=== PATIENT | male | born 1965 | race Caucasian/White ===

== ENCOUNTER 2017-07-18 07:30 | Inpatient (IN) | payer BC ==
[~2017-07-18 07:30] MED LIST: Gabapentin 300 MG Cap PO ONE; Lactated Ringers 1,000 ML IV SCH; Povidone-Iodine 10% Soln 118.25 ML Bottle ONE; Scopolamine 1.5 MG Transdermal Patch TOP SCH; Thrombin (Bovine) 5,000 Unit Kit ONE; ceFAZolin 2 GM in Sodium Chloride 0.9% 50 ML IV ONE
[2017-07-18] MEDS ORDERED: Ketamine 500 MG/5 ML MDV IV SCH (07:45)
[2017-07-18] MEDS ORDERED: Ropivacaine 49.25 ML, Ketorolac 30 MG, EPINEPHrine 0.5 MG, cloNIDine 80 MCG, Sodium Chl... INJECT ONE ×10 (07:45→11:00)
[2017-07-18] MEDS ORDERED: Tranexamic Acid 840 MG in Sodium Chloride 0.9% 50 ML IV SCH (07:45)
[2017-07-18] MEDS ORDERED: Glycopyrrolate 0.2 MG/ML 5 ML MDV ONE (09:30)
[2017-07-18] MEDS ORDERED: Succinylcholine 200 MG/10 ML MDV ONE (09:30)
[2017-07-18] MEDS ORDERED: Ondansetron 4 MG/2 ML SDV ONE (09:30)
[2017-07-18] MEDS ORDERED: Neostigmine Methylsulfate 1 MG/ML 5 ML Syringe ONE (09:30)
[2017-07-18] MEDS ORDERED: Propofol 200 MG/20 ML SDV ONE (09:30)
[2017-07-18] MEDS ORDERED: Gabapentin 300 MG Cap PO ONE (09:30)
[2017-07-18] MEDS ORDERED: Rocuronium 50 MG/5 ML Vial ONE (09:30)
[2017-07-18] MEDS ORDERED: Dexamethasone 4 MG/ML SDV ONE (09:30)
[2017-07-18] MEDS ORDERED: Scopolamine 1.5 MG Transdermal Patch TOP SCH (09:30)
[2017-07-18] MEDS ORDERED: ceFAZolin 2 GM in Sodium Chloride 0.9% 50 ML IV ONE (10:30)
[2017-07-18] MEDS ORDERED: Ketamine 500 MG/5 ML MDV IV ONE (11:00)
[2017-07-18] MEDS: Tranexamic Acid 840 MG in Sodium Chloride 0.9% 50 ML IV SCH ×2 (11:38→13:24)
[2017-07-18] MEDS ORDERED: Gelatin Sponge,Absorbable Pwd 1 GM Pkt ONE (12:30)
[2017-07-18] MEDS ORDERED: Lactated Ringers 1,000 ML ONE (12:52)
[2017-07-18] MEDS ORDERED: Naloxone 0.4 MG/ML SDV IVPUSH PRN (13:14)
[2017-07-18] MEDS ORDERED: Ondansetron 4 MG/2 ML SDV IVPUSH PRN (13:14)
[2017-07-18] MEDS ORDERED: Sodium Chloride 0.9% 10 ML Syringe FLUSH PRN (13:14)
[2017-07-18] MEDS ORDERED: Aluminum Hydroxide/Magnesium Hydroxide/Simethicone Susp 30 ML Cup PO PRN (13:14)
[2017-07-18] MEDS ORDERED: Sennosides 8.6 MG Tab PO PRN (13:14)
[2017-07-18] MEDS ORDERED: Magnesium Hydroxide 400 MG/5 ML Susp 30 ML Cup PO PRN (13:14)
[2017-07-18] MEDS ORDERED: Diazepam 5 MG Tab PO PRN (13:14)
[2017-07-18] MEDS ORDERED: HYDROmorphone 1 MG/ML Syringe IVPUSH PRN (13:14)
[2017-07-18] MEDS ORDERED: Zolpidem 5 MG Tab PO PRN (13:14)
[2017-07-18] MEDS ORDERED: ceFAZolin 2 GM in Sodium Chloride 0.9% 50 ML IV SCH (13:15)
[2017-07-18] MEDS ORDERED: Lactated Ringers 1,000 ML IV ONE (17:05)
[2017-07-18] MEDS: ceFAZolin 2 GM in Sodium Chloride 0.9% 50 ML IV SCH (17:16)
[2017-07-18] MEDS: VERIFY SCOPOLAMINE PATCH TOP SCH (17:33)
--- NOTE | 2017-07-18 23:37 | OR ---
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 PROCEDURE: Laminectomy, L4-5. DRAY DRIVER: Sarah Alan NP. ANESTHESIA: General endotracheal intubation. FLUID: Lactated Ringer solution. ESTIMATED BLOOD LOSS: 50 mL. COMPLICATIONS: None. SPECIMEN: None. DISCHARGE DISPOSITION: Stable to PACU. INDICATIONS FOR THE PATIENT: The patient was seen preoperatively in the clinic. He failed nonoperative treatment. Preoperative imaging confirmed the above-mentioned diagnosis. Risks and benefits of the procedure were explained to the patient. Informed consent was obtained. DETAILS OF PROCEDURE: The patient was seen preoperatively by myself, Anesthesia staff in the preop holding area where the operative site was marked. He was brought to the operative suite by Anesthesia staff where general anesthesia was administered. He was flipped into a prone position on a Evgeny table. All extremities were found to be well padded. The bed was then flexed. The operative site was clipped, prepped, and draped in a sterile manner. Time-out was called identifying the correct patient, correct procedure, the correct site, and antibiotics had been with appropriate period of time. A sterilely draped fluoroscopy unit was used during this procedure as well as the sterilely draped microscope. Lateral fluoroscopy was used to identify the 4-5 interspace. Incision was made down to the deep fascia. Bleeding was controlled during the case with Bovie electrocautery as well as bipolar electrocautery and Aquamantys 5.0 unit. Initial retraction was with cerebellars. Deep dissection was done over the L4-L5 spinous processes and their respective lamina using a Piedra elevator and Bovie electrocautery. A 55 mm Versa-Trac plates were then used for retraction. The level was confirmed, again we then removed the spinous process of L5 and the inferior spinous process of L4, and then using a #5 [place], removed the superior lamina on the left across midline on L5 below the level of the pedicle. I then continued up and removed part of the inferior lamina of L4. We removed the ligamentum flavum. I then used the operating microscope for the remainder of the procedure and removed the flavum as well as bone out of the lateral recess. I very carefully used a #4 [place] to retract initially to make sure we were not retracting the exiting nerve root at L5 and then used a nerve root retractor. I used a long ball but did not feel any mobile disk. I did believe that there was a remnant of the disc which was attached to the posterior vertebral body and posterior longitudinal ligaments, but this was not very thick. After totally decompressing this, I applied a small amount of FloSeal in lateral recess and tamped the excess with a Ray- Dwain. We then copiously irrigated with 2 L Betadine infused irrigation followed by placing some Gelfoam powder, followed by 2-0 Vicryl in an interlocking manner, followed by another liter of Betadine infused irrigation, followed by #1 STRATAFIX and a 3-0 STRATAFIX and a sterile dressing. The patient was then allowed to awaken from general anesthesia and taken to the PACU in stable condition. Param Ponce DO /[id number]
[2017-07-19] MEDS: ceFAZolin 2 GM in Sodium Chloride 0.9% 50 ML IV SCH ×2 (01:43→09:44)
[2017-07-19] MEDS: Acetaminophen/oxyCODONE 325-5 MG Tab PO PRN ×2 (02:57→08:20)
[2017-07-19 08:16] VITALS: BP 98/65
[2017-07-19] MEDS: VERIFY SCOPOLAMINE PATCH TOP SCH (09:46)
--- NOTE | 2017-07-19 11:35 | PCM.DCSUM1 ---
Discharge Summary - Hospital Course Free Text/Narrative:: Arley is pod 1 of a lumbar laminectomy. He is doing well. His pain is under control with oral pain medications. He is ambulating without difficulties. - Discharge Data Discharge Date: 07/19/17 Discharge Disposition: Home, Self-Care 01 Condition: Good - Patient Summary/Data Consults: Consultations 07/18/17 13:15 OT Evaluation and Treatment [CONS] Routine Please Evaluate and Treat. OT Reason for Consult: Strengthening This query below is only for informational purposes and is not editable. PT Evaluation and Treatment [CONS] Routine Please Evaluate and Treat. PT Reason for Consult: Strengthening This query below is only for informational purposes and is not editable. - Patient Instructions Diet: Usual Diet as Tolerated Activity: Apply Ice, As Tolerated Driving: Do Not Drive Showering/Bathing: May Shower Wound/Incision Care: Keep Operative Site/Wound Site Clean and Dry, Change Dressing Daily, Do NOT Change Dressing Notify Provider of: Fever, Increased Pain, Swelling and Redness, Drainage, Nausea and/or Vomiting - Discharge Plan Prescriptions/Med Rec: Acetaminophen/oxyCODONE [Percocet 325-5 MG] 1 tab PO Q6HR PRN #90 tablet PRN Reason: Pain Diazepam [Valium] 5 mg PO Q6H PRN #20 tablet PRN Reason: Spasms Home Medications: Home Meds Gabapentin [Neurontin] 100 tab PO TID 05/16/17 [History] Methocarbamol [Robaxin] 500 mg PO QID PRN 05/16/17 [History] Acetaminophen/oxyCODONE [Percocet 325-5 MG] 1 tab PO Q6HR PRN #90 tablet [Rx] Diazepam [Valium] 5 mg PO Q6H PRN #20 tablet 07/19/17 [Rx] Patient Handouts: Lumbar Laminectomy, Care After - Discharge Summary/Plan Comment DC Time >30 min.: Yes Discharge Summary/Plan Comment: Patient will be dc today. He is to follow up with ortho in 2 weeks. - Patient Data Vitals - Most Recent: Last Vital Signs Temp 36.6 C 07/19/17 08:15 Pulse 60 07/19/17 08:15 Resp 16 07/19/17 08:15 BP 98/65 07/19/17 08:15 Pulse Ox 96 07/19/17 08:54 Weight - Most Recent: 184 lb 6.4 oz I&O - Last 24 hours: Intake & Output 07/18/17 07/19/17 07/19/17 22:59 06:59 14:59 Intake Total 2327 921 Output Total 1275 1005 600 Balance 1052 -84 -600 Lab Results - Last 24 hrs: Laboratory Results - last 24 hr 07/18/17 07/19/17 07/19/17 Range/Units 05:45 05:57 05:57 WBC 13.8 H (4.5-11.0) K/uL RBC 4.06 L (4.30-5.90) M/uL Hgb 12.0 D (12.0-15.0) g/dL Hct 36.0 L (40.0-54.0) % MCV 89 (80-98) fL MCH 30 (27-31) pg MCHC 33 (32-36) % Plt Count 246 (150-400) K/uL Neut % (Auto) 81 H (36-66) % Lymph % (Auto) 9 L (24-44) % [place] % (Auto) 10 H (2-6) % Eos % (Auto) 0 L (2-4) % Baso % (Auto) 0 (0-1) % Sodium 142 (140-148) mmol/L Potassium 4.1 (3.6-5.2) mmol/L Chloride 107 (100-108) mmol/L Carbon Dioxide 27 (21-32) mmol/L Anion Gap 7.6 (5.0-14.0) mmol/L BUN 13 (7-18) mg/dL Creatinine 1.0 (0.8-1.3) mg/dL Est Cr Clr Drug Dosing 85.50 mL/min Estimated GFR (MDRD) > 60 (>60) Glucose 114 H (74-106) mg/dL Calcium 8.4 L (8.5-10.1) mg/dL Blood Type A POSITIVE Gel Antibody Screen Negative Med Orders - Current: Current Medications Al Hydroxide/Mg Hydroxide (Mag-Al Plus) 30 ml PO Q4H PRN PRN Reason: Indigestion Diazepam (Valium.) 5 mg PO Q6H PRN PRN Reason: Spasms Hydromorphone HCl (Dilaudid) 1 mg IVPUSH Q2H PRN PRN Reason: Pain Lactated Ringer's (Ringers, Lactated) 1,000 mls @ 0 mls/hr IV ASDIRECTED DORIE PRN Reason: KVO Last Admin: 07/18/17 11:18 Dose: 25 mls/hr Magnesium Hydroxide (Milk Of Magnesia) 30 ml PO BID PRN PRN Reason: Constipation Naloxone HCl (Narcan) 0.2 mg IVPUSH ONETIME PRN PRN Reason: Oversedation Verify Scopolamine (Patch) 0 each TOP DAILY [facility] Last Admin: 07/19/17 09:46 Dose: Not Given Ondansetron HCl (Zofran) 8 mg IVPUSH Q4H PRN PRN Reason: Nausea/Vomiting Oxycodone/Acetaminophen (Percocet 325-5 Mg) 2 tab PO Q4H PRN PRN Reason: Pain Last Admin: 07/19/17 08:20 Dose: 2 tab Scopolamine (Transderm-Scop) 1.5 mg TOP Q72H [facility] Stop: 07/21/17 07:30 Last Admin: 07/18/17 11:17 Dose: 1.5 mg Senna (Senna) 8.6 mg PO BID PRN PRN Reason: Constipation Sodium Chloride (Saline Flush) 10 ml FLUSH ASDIRECTED PRN PRN Reason: Keep Vein Open Zolpidem Tartrate (Ambien) 5 mg PO BEDTIME PRN PRN Reason: Sleep Discontinued Medications Ropivacaine 49.25 ml/Ketorolac Tromethamine 30 mg/Epinephrine HCl 0.5 mg/ Clonidine HCl 80 mcg/ Sodium Chloride 48.45 ml 0 ml INJECT ONETIME ONE Stop: 07/18/17 11:01 Last Admin: 07/18/17 12:55 Dose: 100 ml Dexamethasone (Dexamethasone) Confirm Administered Dose 4 mg .ROUTE .STK-MED ONE Stop: 07/18/17 09:31 Fentanyl Citrate (Fentanyl) Confirm Administered Dose 500 mcg .ROUTE .STK-MED ONE Stop: 07/18/17 09:30 Gabapentin (Neurontin) 300 mg PO ONETIME ONE Stop: 07/18/17 09:31 Last Admin: 07/18/17 11:17 Dose: 300 mg Gelatin (Gelfoam) 1 gm .ROUTE .STK-MED ONE Stop: 07/18/17 12:31 Glycopyrrolate (Robinul) Confirm Administered Dose 1 mg .ROUTE .STK-MED ONE Stop: 07/18/17 09:31 Cefazolin Sodium 2 gm/ Sodium (Chloride) 50 mls @ 100 mls/hr IV ONETIME ONE Stop: 07/18/17 10:59 Last Admin: 07/18/17 11:38 Dose: 100 mls/hr Ketamine HCl 100 mg/ Sodium (Chloride) 100 mls @ 20 mls/hr IV ASDIRECTED [facility] Stop: 07/18/17 14:00 Tranexamic Acid 840 mg/ Sodium (Chloride) 58.4 mls @ 233.6 mls/hr IV Q3H [facility] Stop: 07/18/17 14:14 Last Admin: 07/18/17 13:24 Dose: 233.6 mls/hr Lactated Ringer's (Ringers, Lactated) Confirm Administered Dose 1,000 mls @ as directed .ROUTE .STK-MED ONE Stop: 07/18/17 12:53 Cefazolin Sodium 2 gm/ Sodium (Chloride) 50 mls @ 100 mls/hr IV Q8H [facility] Stop: 07/19/17 05:44 Last Admin: 07/18/17 18:45 Dose: Not Given Cefazolin Sodium 2 gm/ Sodium (Chloride) 50 mls @ 100 mls/hr IV Q8H [facility] Stop: 07/19/17 10:29 Last Admin: 07/19/17 09:44 Dose: 100 mls/hr Lactated Ringer's (Ringers, Lactated) 1,000 mls @ 999 mls/hr IV BOLUS ONE Stop: 07/18/17 18:05 Last Admin: 07/18/17 17:21 Dose: 999 mls/hr Ketamine HCl (Ketalar) 35 mg IV ONETIME ONE Stop: 07/18/17 11:01 Last Admin: 07/18/17 18:34 Dose: Not Given Neostigmine Methylsulfate (Neostigmine) Confirm Administered Dose 5 mg .ROUTE .STK-MED ONE Stop: 07/18/17 09:31 Ondansetron HCl (Zofran) Confirm Administered Dose 4 mg .ROUTE .STK-MED ONE Stop: 07/18/17 09:31 Povidone Iodine (Betadine 10% Soln) Confirm Administered Dose 1 ml .ROUTE .STK- MED ONE Stop: 07/18/17 06:48 Last Admin: 07/18/17 12:18 Dose: 30 ml Propofol (Diprivan 20 Ml) Confirm Administered Dose 200 mg .ROUTE .STK-MED ONE Stop: 07/18/17 09:31 Rocuronium [place] (Zemuron) Confirm Administered Dose 50 mg .ROUTE .STK-MED ONE Stop: 07/18/17 09:31 Succinylcholine Chloride (Quelicin) Confirm Administered Dose 200 mg .ROUTE .STK -MED ONE Stop: 07/18/17 09:31 Thrombin (Thrombin-Jmi) Confirm Administered Dose 15,000 unit .ROUTE .STK-MED ONE Stop: 07/18/17 06:48 Last Admin: 07/18/17 12:19 Dose: 10,000 unit - Exam General: Reports: Alert, Oriented Extremities: Normal Inspection, Normal Range of Motion, Non-Tender, No Pedal Edema, Normal Capillary Refill Skin: Reports: Warm, Dry, Intact Wound/Incisions: Reports: Healing Well, Dressing Dry and Intact, No Drainage Neurological: Reports: No New Focal Deficit, Normal Gait, Strength Equal Bilateral, Reflexes Equal Bilateral Psy/Mental Status: Reports: Alert *Q Meaningful Use (DIS) - VTE *Q VTE Criteria *Q: - Stroke *Q Stroke Criteria *Q: - AMI *Q AMI Criteria *Q:
== END 2017-07-19 11:45 | disposition home or self-care (01) | DRG 310 ==
LOC: EDSTATUS 07:30 → JP.SDS 10:44 → JP.MS 10:44
PROVIDERS: ADMIT Orthopaedic Surgery; ATTEND Orthopaedic Surgery
PROC: 0QB00ZZ Excision of Lumbar Vertebra, Open Approach (ICD-10-PCS; principal; 2017-07-18)
DX: M48.06 Spinal stenosis, lumbar region (principal); M51.16 Intervertebral disc disorders with radiculopathy, lumbar region
CPT/HCPCS: 36415; 76000; 80048; 80053; 85025; 85027; 86850; 86900; 86901; 87070; 94762; 97161-GP; 97165-GO; 97530-GP; A9270-GY; J0171; J0330; J0690; J0735; J1100; J1885; J2405; J2704; J2710; J2795; J3010; J7030; J7050; J7120

== ENCOUNTER 2019-11-18 08:47 | Day surgery (SDC) | payer BC ==
[~2019-11-18 08:47] MED LIST changes: -Gabapentin 300 MG Cap PO ONE; -Lactated Ringers 1,000 ML IV SCH; +Midazolam 1 MG/ML 2 ML SDV ONE; -Povidone-Iodine 10% Soln 118.25 ML Bottle ONE; +Propofol 200 MG/20 ML SDV ONE; -Scopolamine 1.5 MG Transdermal Patch TOP SCH; -Thrombin (Bovine) 5,000 Unit Kit ONE; -ceFAZolin 2 GM in Sodium Chloride 0.9% 50 ML IV ONE; +fentaNYL 100 MCG/2 ML SDV ONE
[2019-11-18] MEDS ORDERED: Dextrose 5%-Lactated Ringers 1,000 ML IV SCH (09:30)
[2019-11-18 12:59] VITALS: BP 112/71; PULSE 68
--- NOTE | 2019-11-24 14:30 | OR ---
DATE OF PROCEDURE: 11/18/2019 SURGEON: Reece Ponce MD PREOPERATIVE DIAGNOSIS: Indications for screening colonoscopy. POSTOPERATIVE DIAGNOSIS: Normal screening colonoscopy. OPERATIVE PROCEDURE: Screening colonoscopy. ANESTHESIA: IV sedation. INDICATION FOR PROCEDURE: 54-year-old male presenting for initial screening colonoscopy. He has no personal or family history of colon polyps. Plan is to proceed with a colonoscopy with biopsies and polypectomy as indicated. Potential risks including bleeding and perforation were discussed, and the patient wishes to proceed. DETAILS OF PROCEDURE: The patient was taken to the operating room and placed in a left lateral decubitus position. IV sedation was administered, after which the initial digital rectal exam was performed and was unremarkable. The prostate exam revealed it was smooth, slightly enlarged, but no nodularity. The scope was then passed into the rectum with retroflexion revealing uncomplicated hemorrhoidal columns. The scope was eventually passed to the level of the cecum. The prep was quite good with only a small amount of liquid stool present. To that level, there were no diverticula, no areas of colitis, no polyps or other signs of neoplasia. Scope was then withdrawn and the above findings reconfirmed. Procedure was concluded. There were no evident complications. Given the normal findings today and the lack of any personal or family history of colon polyps, the next colonoscopy should be scheduled in 10 years. Reece Ponce MD /[id number]
== END 2019-11-18 13:15 | disposition home or self-care (01) ==
LOC: JP.SDS 08:47
PROVIDERS: ATTEND Surgery
DX: Z12.11 Encounter for screening for malignant neoplasm of colon (principal); K64.9 Unspecified hemorrhoids; N40.0 Benign prostatic hyperplasia without lower urinary tract symptoms
CPT/HCPCS: 45378; J2250; J2704; J3010; J7121